=== PATIENT | male | born 1945 | race Caucasian/White ===

== ENCOUNTER → 2017-05-04 | Outpatient (CLI) | payer MEDICARE, OTHER | END | disposition home or self-care (01) | LOC: GMAH 14:35 | PROVIDERS: ATTEND Family Medicine | DX: N52.8 Other male erectile dysfunction (principal); E78.2 Mixed hyperlipidemia ==

== ENCOUNTER → 2017-05-05 | Outpatient (CLI) | payer MEDICARE, OTHER | END | disposition home or self-care (01) | LOC: GMAH 08:12 | PROVIDERS: ATTEND Family Medicine | DX: Z12.5 Encounter for screening for malignant neoplasm of prostate (principal) ==

== ENCOUNTER 2017-07-20 13:42 | Emergency (ER) | payer MEDICARE, OTHER ==
[2017-07-20 14:42] VITALS: TEMP 96.9
--- NOTE | 2017-07-20 15:32 | CT ---
EXAM DESCRIPTION: Cervical Spine: Computed Tomography. CLINICAL HISTORY: syncope with head trauma COMPARISON: CT head noncontrast on the same visit. TECHNIQUE: Spiral, axial 2.5 mm scans through the cervical spine without contrast. Coronal and sagittal 2.0 mm Reconstructions. Total Exam DLP: 497.71 mGy-cm. This exam was performed according to our departmental dose-optimization program which includes automated exposure control, adjustment of the mA and/or kV according to patient size and/or use of iterative reconstruction technique; to reduce radiation dose to as low as reasonably achievable (ALARA). FINDINGS: Arthrosis in the atlantoaxial joint with marginal spurs. Small calcifications in the adjacent soft tissues. The atlas is in the midline with no separation. No fracture. Minimal arthrosis of the bilateral atlantooccipital joints with no fracture. C2-3: Posterior disc space narrowing with no disc bulging. Left uncinate spur and minimal left neural foraminal narrowing. Left facet arthrosis. No fractures. C3-4: Minimal disc space loss anterior more posterior. Left uncinate spur. Right facet arthrosis. Trace anterolisthesis. Moderate right neural foraminal narrowing and left neural foraminal stenosis. Posterior disc osteophyte complex minimal bulge not abutting the cord. No fractures. C4-5: Moderate disc space loss with anterior endplate ridging and trace anterolisthesis. Posterior disc osteophyte tiny bulge into the canal. Bilateral facet arthrosis with near stenosis of the right neural foramen and moderate stenosis left. Mild canal narrowing. No fractures. C5-6: Severe disc space loss and disc space sclerosis with Schmorl's nodes inferior C5 endplate. Grade 1 retrolisthesis. Anterior endplate ridging. Bilateral uncinate spurs and neural foraminal stenosis right, moderate narrowing on the left. Bilateral facet arthrosis. C6-7: Severe disc space loss. Endplate sclerosis and Schmorl's node posterior inferior C6 endplate. Anterior endplate ridging. Trace retrolisthesis. Bilateral uncinate spurs and bilateral facet arthrosis. Moderate right neural foraminal narrowing. Borderline left neural foraminal stenosis. No fractures. Schmorl's node superior C7 endplate. C7-T1: Anterolisthesis and moderate disc space loss. Moderate right neural foraminal narrowing and mild left neural foraminal narrowing. Bilateral facet arthrosis. Minimal disc bulge. No fractures. T1-2: Disc space maintained with no bulging. Canal and bilateral foramina are patent. Minimal facet arthrosis. No fractures. No compression type vertebral body fractures. Minimal dextroscoliosis. IMPRESSION: 1. No compression type vertebral body fractures. Posterior elements are intact. No perched or locked facets. No posttraumatic spondylolisthesis. 2. Multiple levels of spondylosis most severe at C5-6 and C6-7. Multiple levels of facet arthrosis. 3. Neural foraminal stenosis on the right at C5-6 with grade 1 retrolisthesis. Borderline left neural foraminal stenosis at C6-7. Trace retrolisthesis. 4. Left neural foraminal stenosis at C3-4 with trace anterolisthesis and disc space loss. Moderate spondylosis at C4-5 with moderate left neural foraminal stenosis. Electronically signed by: Tod Westbrook MD 07/20/2017 3:31 PM [facility]
--- NOTE | 2017-07-20 15:38 | CT ---
EXAM DESCRIPTION: Head: Computed Tomography. CLINICAL HISTORY: syncope with head trauma COMPARISON: CT scan of the cervical spine without contrast on this visit. TECHNIQUE: Non-helical axial scans through the skull and brain, at 2.0 mm intervals, non-contrast. Coronal and sagittal 2.0 mm reconstructions. Total Exam DLP: 859.97 mGy-cm. This exam was performed according to our departmental dose-optimization program which includes automated exposure control, adjustment of the mA and/or kV according to patient size and/or use of iterative reconstruction technique; to reduce radiation dose to as low as reasonably achievable (ALARA). FINDINGS: No hemorrhage, no mass-effect, and no midline shift. Minimum bilateral periventricular low-density in the white matter. No abnormal radiodense material in the brain parenchyma. Vascular calcifications minimal anterior; physiologic calcifications in the pineal gland and choroid plexus. No effacement or displacement of the ventricles, CSF spaces, or subdural spaces. No extra axial fluid collection or hemorrhage. No gross abnormalities of the bony calvarium. Minimal mucoperiosteal thickening in the bilateral ethmoid air cells. Included sinuses show no air-fluid levels. IMPRESSION: 1. No hemorrhage, no mass effect, no midline shift. Minimal small vessel disease affecting the periventricular white matter bilaterally. 2. CT scans are insensitive for detecting small CVAs in the first 24 hours after onset. Evaluation of the brain stem is also limited. If symptoms persist, consider MRI scan of the brain with diffusion imaging. Electronically signed by: Tod Westbrook MD 07/20/2017 3:37 PM [facility]
--- NOTE | 2017-07-20 15:57 | ED.PDOC ---
History of Present Illness - General Chief Complaint: Syncope/Near Syncope Stated Complaint: syncope; laceration Time Seen by Provider: 07/20/17 14:35 Source: patient Exam Limitations: no limitations - History of Present Illness Initial Comments: the patient is a 72-year-old male presenting to the emergency room secondary to a syncopal episode at home. He has had several near syncopal episodes in the past. These have been related to blood pressure drops when he has gone to stand up. He has had frequent adjustments adjustments on his blood pressure medications for this fact. The patient went to get up quickly to go see was at the door. He passed out within 10 seconds. He woke up immediately after. He did sustain a posterior laceration approximately 1 inch in length over the occipital area. No neurological deficits. He is alert and oriented and cooperative. He is ambulatory. He is pleasant. No other injuries. He has not having any neck pain. Timing/Duration: momentarily Severity: moderate Improving Factors: nothing Worsening Factors: nothing Associated Symptoms: denies symptoms Allergies/Adverse Reactions: Allergies Latex Allergy (Verified 07/20/17 15:48) Penicillins Allergy (Verified 07/20/17 15:48) Review of Systems - Review of Systems Constitutional: States: no symptoms reported EENTM: States: no symptoms reported Respiratory: States: no symptoms reported Cardiology: States: no symptoms reported Gastrointestinal/Abdominal: States: no symptoms reported Genitourinary: States: no symptoms reported Musculoskeletal: States: no symptoms reported Skin: States: see HPI Neurological: States: see HPI Endocrine: States: no symptoms reported All other Systems: No Change from Baseline Past Medical History (General) - Patient Medical History Hx Seizures: No Hx Stroke: No Hx Asthma: No Hx of COPD: No Hx Cardiac Disorders: Yes Hx Congestive Heart Failure: No Hx Pacemaker: Yes Hx Hypertension: Yes Hx Thyroid Disease: Yes Hx Diabetes: No Hx Gastroesophageal Reflux: No Hx Renal Disease: No Hx Cancer: Yes Surgical History: pacemaker, other - Vaccination History Hx Influenza Vaccination: No Family Medical History - Family History Mother Family History: No Known Physical Exam - Physical Exam General Appearance: Alert, Comfortable, No apparent distress Eye Exam: bilateral normal Ears, Nose, Throat: hearing grossly normal, normal ENT inspection, normal pharynx Neck: full range of motion, supple Respiratory: lungs clear, normal breath sounds, no respiratory distress, no accessory muscle use Cardiovascular/Chest: normal peripheral pulses, no edema, other - egular rate Peripheral Pulses: radial,right: 2+, radial,left: 2+, dorsalis pedis,right: 2+, dorsalis pedis,left: 2+ Gastrointestinal/Abdominal: non tender, soft Rectal Exam: deferred Back Exam: normal inspection Extremity: non-tender, normal inspection, normal capillary refill 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 Progress - Progress Progress: 07/20/17 15:59 the patient is a 72-year-old male presenting secondary to what appears to be syncope due to orthostasis. he needs to discuss his blood pressure medications with his primary care doctor in the very near future and make adjustments to prevent further syncopal episodes. After risks and benefits were explained the patient did agree to proceed with repair of his posterior scalp laceration. The wound was cleaned with hydrogen peroxide and 3 susan were used for reapproximation. Total blood loss here was less than 2 or [address] showed no evidence of any intracranial hemorrhage or acute pathology. The patient is alert and oriented and cooperative. Susan need to come out in 5-7 days. Topical Neosporin can be used daily to aid in healing. - Results/Orders Results/Orders: head CT shows no evidence of any acute pathology. No intracranial bleed. No hydrocephalus. No fracture. CT scan of the cervical spine shows fairly extensive long-term pathology but no evidence of any acute changes. No fracture. Departure - Departure Clinical Impression: Orthostatic syncope Disposition: Discharge to Home or Self Care Condition: Fair Departure Forms: ED Discharge - Pt. Copy, Patient Portal Self Enrollment Instructions: DI for Syncope in Adults (Fainting) Diet: regular diet Activity: increase activity as tolerated Referrals: Nick Narvaez MD [Primary Care Provider] - 1-5 Days Additional Instructions: the patient is a 72-year-old male presenting secondary to what appears to be syncope due to orthostasis. he needs to discuss his blood pressure medications with his primary care doctor in the very near future and make adjustments to prevent further syncopal episodes. he agreed to repair of his posterior scalp laceration. The wound was cleaned with hydrogen peroxide and 3 susan were used for reapproximation. Total blood loss here was less than 2 or [address] showed no evidence of any intracranial hemorrhage or acute pathology. The patient is alert and oriented and cooperative. Eckerty need to come out in 5-7 days. Topical Neosporin can be used daily to aid in healing.
[2017-07-20 16:18] VITALS: BP 124/66; O2SAT 98
== END 2017-07-20 16:05 | disposition home or self-care (01) ==
LOC: ER 13:42
DX: R55 Syncope and collapse (principal); I10 Essential (primary) hypertension; E07.9 Disorder of thyroid, unspecified; S01.01XA Laceration without foreign body of scalp, initial encounter; Z95.0 Presence of cardiac pacemaker; Z88.0 Allergy status to penicillin; Z91.040 Latex allergy status; W19.XXXA Unspecified fall, initial encounter

== ENCOUNTER 2017-08-15 05:44 | Emergency (ER) | payer MEDICARE, OTHER ==
--- NOTE | 2017-08-15 06:20 | ED.PDOC ---
History of Present Illness - General Source: patient, RN notes reviewed Exam Limitations: no limitations Additional Information: 72 YEAR OLD HERE AFTER ALMOST PASSING OUT AT HOME THIS MORNING HE REPORTS FEVER CHILLS DYSURIA YESTERDAY HE HAS BEEN HAVING EPISODES OF WEAKNESS DIZZINESS AND ORTHOSTATIC HYPOTENSION RELATED SYMPTOMS FOR FEW WEEKS SEEN HERE APPROXIMATELY 3 WEEKS AGO AFTER A SYNCOPAL EPISODE HE HAD SUSTAINED A SCALP LACERATION SEEN BY HIS PCP A FOLLOW UP AND HIS BP AT THE OFFICE VISIT WAS 120 SYSTOLIC AND HE WAS ASYMPTOMATIC AT THE VISIT NO CHANGE IN MEDICATIONS WAS MADE IT SHOULD BE NOTED THAT HE IS ON HCTZ LISINOPRIL ALDACTONE CARVIDILOL 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 MAKER AND DEFIBRILLATOR HE HAS HAD A CARDIAC CATH A DECADE AGO WAS TOLD HE HAD NORMAL CORONARY ARTERIES - History of Present Illness Timing/Duration: 1 week Prior Chest Pain/Cardiac Workup: no prior chest pain Improving Factors: rest Worsening Factors: movement Associated Symptoms: syncope, weakness <Glo Levin - Last Filed: 08/15/17 06:58> <Sharad Arzate - Last Filed: 08/15/17 11:54> - General Chief Complaint: Blood Pressure Problem Stated Complaint: low B/P, dizziness Time Seen by Provider: 08/15/17 06:18 - History of Present Illness Allergies/Adverse Reactions: Allergies Latex Allergy (Verified 08/15/17 05:57) Penicillins Allergy (Verified 08/15/17 05:57) Home Medications: Ambulatory Orders Allopurinol 300 mg PO DAILY 07/20/17 Carvedilol [Coreg] 25 mg PO BID 07/20/17 Digoxin 0.25 mg PO DAILY 07/20/17 Hydrochlorothiazide 25 mg PO DAILY 07/20/17 Indomethacin 25 mg PO TID PRN 07/20/17 Levothyroxine Sodium [Synthroid] 150 mcg PO DAILY 07/20/17 Lisinopril 20 mg PO BID 07/20/17 Magnesium Oxide 400 mg PO DAILY 07/20/17 Rivaroxaban [Xarelto] 20 mg PO DAILY 07/20/17 Sildenafil Citrate [Viagra] 100 mg PO DAILY PRN 07/20/17 Simvastatin 40 mg PO DAILY 07/20/17 Spironolactone 25 mg PO QAM 07/20/17 Diatomaceous Earth 3 - 4 tbls 08/15/17 Magnesium Oxide 400 mg PO 08/15/17 Review of Systems - Review of Systems Constitutional: States: no symptoms reported EENTM: States: no symptoms reported Respiratory: States: no symptoms reported Cardiology: States: see HPI, syncope Gastrointestinal/Abdominal: States: no symptoms reported Genitourinary: States: no symptoms reported Musculoskeletal: States: no symptoms reported Skin: States: no symptoms reported Neurological: States: no symptoms reported Endocrine: States: no symptoms reported Hematologic/Lymphatic: States: no symptoms reported <Glo Levin - Last Filed: 08/15/17 06:58> Past Medical History (General) - Patient Medical History Hx Seizures: No Hx Stroke: No Hx Dementia: No Hx Asthma: No Hx of COPD: No Hx Cardiac Disorders: Yes - irregular heartbeat Hx Congestive Heart Failure: No Hx Pacemaker: Yes Hx Hypertension: Yes Hx Thyroid Disease: Yes Hx Diabetes: No Hx Gastroesophageal Reflux: No Hx Renal Disease: No Hx Cancer: Yes - skin Hx of HIV: No Hx MRSA: No Surgical History: no surgical history - Vaccination History Hx Influenza Vaccination: Yes Hx Pneumococcal Vaccination: Yes - Social History Hx Alcohol Use: Yes - daily-scotch <Glo Levin - Last Filed: 08/15/17 06:58> Family Medical History - Family History Mother Family History: No Known <Glo Levin - Last Filed: 08/15/17 06:58> - Family History Mother Hx Cardiac Disease: Yes - mom- <Sharad Arzate - Last Filed: 08/15/17 11:54> Physical Exam - Physical Exam General Appearance: Alert Eyes, Ears, Nose, Throat Exam: PERRL/EOMI, normal ENT inspection, TMs normal, pharynx normal Neck: non-tender, full range of motion, supple, normal inspection Respiratory: chest non-tender, lungs clear, normal breath sounds, no respiratory distress, no accessory muscle use Cardiovascular/Chest: no edema, no gallop, no JVD, no murmur Gastrointestinal/Abdominal: normal bowel sounds, non tender, soft, no organomegaly, no pulsatile mass 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, no motor/sensory deficits, normal mood/ affect, oriented x 3 Skin Exam: normal color, warm/dry <Glo Levin - Last Filed: 08/15/17 06:58> - Physical Exam Rectal Exam: normal exam, normal rectal tone, other - prostate not enlarged Extremity: no pedal edema, no calf tenderness <Sharad Arzate - Last Filed: 08/15/17 11:54> Progress - Progress Progress: 08/15/17 07:43 Vital Signs - 8 hr 08/15/17 08/15/17 08/15/17 05:45 05:54 06:19 Temperature 97.8 F Pulse Rate [ 86 86 80 monitor] Respiratory 16 16 Rate Blood Pressure 91/45 98/51 [Left Arm] O2 Sat by Pulse 100 97 Oximetry 08/15/17 08/15/17 08/15/17 06:30 06:34 06:35 Temperature Pulse Rate [ 80 82 monitor] Respiratory Rate Blood Pressure 96/48 98/51 78/43 [Left Arm] O2 Sat by Pulse Oximetry 08/15/17 08/15/17 06:36 06:59 Temperature Pulse Rate [ 91 H 81 monitor] Respiratory Rate Blood Pressure 70/39 100/56 [Left Arm] O2 Sat by Pulse Oximetry 08/15/17 11:50 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 - Results/Orders Results/Orders: 08/15/17 06:30 EKG STAT 08/15/17 07:00 URINE CULTURE W/COLONY COUNT Stat 08/15/17 07:31 Abdoment/Pelvis w/o Contrast [CT] Stat 08/15/17 07:37 MAGNESIUM Stat PHOSPHOROUS Stat URIC ACID Stat Laboratory Results - last 24 hr 08/15/17 08/15/17 08/15/17 05:45 05:45 07:00 WBC 5.8 RBC 3.06 L Hgb 10.8 L Hct 31.7 L MCV 103.8 H MCH 35.2 H MCHC 33.9 RDW 14.0 Plt Count 105 L MPV 9.3 Absolute Neuts (auto) 5.20 Absolute Lymphs (auto) 0.30 L Absolute Monos (auto) 0.30 Absolute Eos (auto) 0.00 Absolute Basos (auto) 0.00 Neutrophils % 89.6 H Lymphocytes % 4.5 L Monocytes % 5.6 Eosinophils % 0.0 L Basophils % 0.3 Sodium 131 L Potassium 4.4 Chloride 99 L Carbon Dioxide 21 Anion Gap 15.4 BUN 46 H Creatinine 2.50 H BUN/Creatinine Ratio 18.4 Random Glucose 159 H Serum Osmolality 277.9 Calcium 8.8 Total Bilirubin 0.5 AST 26 ALT 9 L Alkaline Phosphatase 44 Serum Total Protein 6.7 Albumin 3.5 Globulin 3.2 Albumin/Globulin Ratio 1.1 Urine Color Yellow Urine Appearance Sl cloudy Urine pH 5.5 Ur Specific Grover 1.025 Urine Protein 30 Urine Glucose (UA) Negative Urine Ketones Trace Urine Blood Moderate H Urine Nitrite Negative Urine Bilirubin Small H Urine Urobilinogen 0.2 Ur Leukocyte Esterase Small H Urine RBC 5-10 H Urine WBC Tntc H Ur Epithelial Cells 0 Urine Bacteria 4+ H - EKG/XRAY/CT EKG: Atrial, Fibrillation, LBBB, nonspecific ST T wave Chg Comments: Heart rate 83 pacemaker XRAY: chest - no acute abnormality <Sharad Arzate - Last Filed: 08/15/17 11:54> Departure <Glo Levin - Last Filed: 08/15/17 06:58> - Departure Time of Disposition: 11:45 <Sharad Arzate - Last Filed: 08/15/17 11:54> - Departure Clinical Impression: Pyelonephritis, acute, Non-ST elevation UT (NSTEMI) Hypotension Qualifiers: Hypotension type: unspecified hypotension type Qualified Code(s): I95.9 - Hypotension, unspecified Renal failure (ARF), acute on chronic Qualifiers: Acute renal failure type: unspecified Chronic kidney disease stage: unspecified stage Qualified Code(s): N17.9 - Acute kidney failure, unspecified Cardiomyopathy Qualifiers: Cardiomyopathy type: unspecified Qualified Code(s): I42.9 - Cardiomyopathy, unspecified Disposition: Transfer to Hospital Condition: Fair Departure Forms: Patient Portal Self Enrollment Referrals: Nick Narvaez MD [Primary Care Provider] - 1-2 Weeks Home Medications: Ambulatory Orders Allopurinol 300 mg PO DAILY 07/20/17 Carvedilol [Coreg] 25 mg PO BID 07/20/17 Digoxin 0.25 mg PO DAILY 07/20/17 Hydrochlorothiazide 25 mg PO DAILY 07/20/17 Indomethacin 25 mg PO TID PRN 07/20/17 Levothyroxine Sodium [Synthroid] 150 mcg PO DAILY 07/20/17 Lisinopril 20 mg PO BID 07/20/17 Magnesium Oxide 400 mg PO DAILY 07/20/17 Rivaroxaban [Xarelto] 20 mg PO DAILY 07/20/17 Sildenafil Citrate [Viagra] 100 mg PO DAILY PRN 07/20/17 Simvastatin 40 mg PO DAILY 07/20/17 Spironolactone 25 mg PO QAM 07/20/17 Diatomaceous Earth 3 - 4 tbls 08/15/17 Magnesium Oxide 400 mg PO 08/15/17 Transfer to Outside Facility - Transfer Information Accepting Provider:: D/W CHANDRIKA- Accepting Facility: [facility] Reason for Transfer: required specialist not available <Sharad Arzate R - Last Filed: 08/15/17 11:54>
[2017-08-15] MEDS ORDERED: SODIUM CHLORIDE 0.9% 1000ML 500 ML IVS ONE (06:37)
[2017-08-15] MEDS ORDERED: SODIUM CHLORIDE 0.9% 1000ML 1,000 ML ONE (06:37)
--- NOTE | 2017-08-15 06:46 | RAD ---
EXAM DESCRIPTION: Chest,1 View CLINICAL HISTORY: dizziness COMPARISON: None. FINDINGS: Single frontal view of the chest. Atherosclerotic calcification aortic arch. Heart is not enlarged. Left-sided pacemaker. No consolidation, pneumothorax, or pleural effusion. No displaced rib fractures identified. Upper abdominal soft tissues are unremarkable. IMPRESSION: 1. No acute pulmonary process identified. Electronically signed by: Jones Blanco 08/15/2017 6:45 AM DEPARTMENT DIRECTOR
--- NOTE | 2017-08-15 07:59 | CT ---
Study: CT abdomen and pelvis. Indication: renal failure Technique: CT of the abdomen and pelvis obtained without intravenous contrast. This exam was performed according to our departmental dose-optimization program, which includes automated exposure control, adjustment of the mA and/or kV according to patient size and/or use of iterative reconstruction technique. Comparison: None. Findings: Lung bases clear. Cardiac pacemaker. Heart size normal. Liver, gallbladder, pancreas, spleen, adrenal glands, bladder, prostate gland demonstrate normal unenhanced CT appearance. Nonspecific bilateral perinephric stranding. Several indeterminate bilateral low-density renal lesions measuring up to 2 cm. No hydronephrosis or nephrolithiasis. Questionable mild circumferential rectal wall thickening. Colonic diverticulosis without diverticulitis. Tiny hiatal hernia. Small bowel and possibly to the appendix are unremarkable. No free fluid. No free air. No pathologically enlarged lymphadenopathy. Pronounced calcific atherosclerosis aorta and its branches. Degenerative changes of the spine noted. Impression: Nonspecific bilateral perinephric stranding. Correlation with urinalysis and urine cultures recommended. Bilateral low-density indeterminate renal lesions. Further characterization with renal sonogram recommended. Pronounced atherosclerosis. Colonic diverticulosis Questionable mild circumferential rectal wall thickening. This could reflect under distention, proctitis, or malignancy. Correlation with colonoscopy recommended if not recently performed. Additional findings as above. Electronically signed by: Nikita Jarquin MD 08/15/2017 7:58 AM EVENTS ASSISTANT
[2017-08-15] MEDS ORDERED: levoFLOXacin 500MG IV 500 MG in PREMIX BAG 1 BAG IVPB ONE (08:00)
[2017-08-15] MEDS ORDERED: levoFLOXacin 500MG IV 100 ML IVPB ONE (08:18)
[2017-08-15] MEDS ORDERED: MAGNESIUM SULFATE PREMIX 2GM 2 GM in PREMIX BAG 1 BAG IVPB ONE (08:22)
[2017-08-15] MEDS ORDERED: MAGNESIUM SULFATE PREMIX 2GM 50 ML IVPB ONE (08:42)
[2017-08-15 10:09] VITALS: TEMP 97.2; O2SAT 99
[2017-08-15] MEDS ORDERED: SODIUM BICARBONATE VIAL 75 MEQ in DEXTROSE 5% 1000ML 1,000 ML IVS ONE (10:41)
[2017-08-15] MEDS ORDERED: DEXTROSE 5% 1000ML 1,000 ML IVS ONE (10:55)
[2017-08-15 11:38] VITALS: BP 120/74
[2017-08-15] MEDS ORDERED: SODIUM BICARBONATE VIAL 50 MEQ/50 ML VIAL ONE (18:38)
[2017-08-15] MEDS ORDERED: KETAMINE HCL 100 MG/ML VIAL ONE (18:38)
== END 2017-08-15 12:20 | disposition short-term general hospital (02) ==
LOC: ER 05:44
DX: I21.4 Non-ST elevation (NSTEMI) myocardial infarction (principal); N10 Acute pyelonephritis; I95.9 Hypotension, unspecified; I42.9 Cardiomyopathy, unspecified; I44.7 Left bundle-branch block, unspecified; Z95.0 Presence of cardiac pacemaker; I10 Essential (primary) hypertension; E07.9 Disorder of thyroid, unspecified; Z91.040 Latex allergy status
CPT/HCPCS: 36415; 71045; 74176; 80053; 80162; 81001; 83735; 84100; 84484; 84550; 85025; 87086; 87088; 87186; 93005; J1956; J3475; J7030; J7060

== ENCOUNTER → 2017-09-27 | Outpatient (CLI) | payer MEDICARE, OTHER | END | disposition home or self-care (01) | LOC: GMAH 11:56 | PROVIDERS: ATTEND Family Medicine | DX: I42.9 Cardiomyopathy, unspecified (principal); I10 Essential (primary) hypertension ==

== ENCOUNTER → 2017-12-26 | Outpatient (CLI) | payer MEDICARE, OTHER | LOC: GMAH 13:20 | PROVIDERS: ATTEND Family Medicine | DX: E83.42 Hypomagnesemia (principal) ==

== ENCOUNTER → 2018-04-05 | Outpatient (CLI) | payer MEDICARE, OTHER | LOC: GMAH 10:36 | PROVIDERS: ATTEND Family Medicine | DX: E83.42 Hypomagnesemia (principal) ==

== ENCOUNTER → 2019-02-15 | Outpatient (CLI) | payer MEDICARE, OTHER | LOC: GMA MATASK 11:17 | PROVIDERS: ATTEND Family Medicine | DX: E03.9 Hypothyroidism, unspecified (principal) ==

== ENCOUNTER → 2020-05-07 | Outpatient (CLI) | payer MEDICARE, OTHER | LOC: GMA MATASK 11:18 | PROVIDERS: ATTEND Family Medicine | DX: E03.9 Hypothyroidism, unspecified (principal); E78.2 Mixed hyperlipidemia ==